=== PATIENT | female | born 1985 | race Caucasian/White ===

== ENCOUNTER → 2018-07-05 | Outpatient (CLI) | payer OTHER | LOC: FIMAGING 10:13 | PROVIDERS: ATTEND Family Medicine | DX: M79.641 Pain in right hand (principal) ==

== ENCOUNTER 2018-11-28 18:34 | Emergency (ER) | payer OTHER ==
[2018-11-28 18:57] VITALS: BP 116/74
[2018-11-28] MEDS ORDERED: FLUORESCEIN SODIUM 1 MG STRIP OP ONE (19:05)
[2018-11-28] MEDS ORDERED: PROPARACAINE 0.5% 15 ML OPHT DROP ONE (19:05)
[2018-11-28] MEDS ORDERED: TOBRAMYCIN 0.3% SOLN PREPACK OPHT.BTL TAKEHOME ONE (19:15)
--- NOTE | 2018-11-28 19:15 | EDPHY ---
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 today Time Seen by Provider: 11/28/18 19:08 HPI/ROS: HPI: This is a 33-year-old female who presents with Chief Complaint: hx keratoconus/removing lens may have abraded r cornea today Location: Right eye Quality: Foreign body sensation Duration: 30 min prior to arrival Signs and Symptoms: no fever, no nausea, no vomiting, no photophobia, no noise sensitivity, no neck stiffness, no ear pain, no tinnitus, no nasal congestion, no sinus pressure, no weakness, no radiation, no aura, no eye pain, no vision changes, no vision blurriness, no diplopia, no discharge Timing: Acute Severity: 11/18 Context: Patient has a history of keratonconus, [facility] in [place], presents with using the suction to remove her lens this evening accidentally scratching the edge of her cornea at the bottom portion near 6:00 a.m. with the plunger. Patient reports that she feels a foreign body sensation in the bottom portion of her eye. She denies any vision changes or eye discharge or eye blurriness. She normally has dry eyes and uses refresh tears. She tried using the refreshed years but the foreign body sensation did not go way. Reports tetanus is up-to-date. Modifying Factors: None Comment: ROS: A comprehensive 10 system review of systems is otherwise negative aside from elements mentioned in the history of present illness. MEDICAL/SURGICAL/SOCIAL HISTORY: Medical history: Generally healthy. Does not take any regular medications. Surgical history: Denies Social history: , employed. Former smoker. Family history noncontributory. General appearance: Well-developed, well-nourished, adult white female, cooperative, nontoxic in appearance, and daughter at bedside, Visual Acuity: noted from Nurse's notes. Pupils: equal round and reactive to light. EOMI Lids: no edema or swelling Skin: no proptosis, no periorbital erythema or swelling, no vesicles Conjunctivae: not injected, no discharge Cornea: exam with fluorescein shows no small pinpoint uptake at the 6 o'clock position Anterior chamber: normal, no hyphema or hypopyon Source: Patient Exam Limitations: No limitations - Personal History LMP (Females 10-55): 8-14 Days Ago Current Tetanus Diphtheria and Acellular Pertussis (TDAP): Yes - Medical/Surgical History Hx Asthma: No Hx Chronic Respiratory Disease: No Hx Diabetes: No Hx Cardiac Disease: No Hx Renal Disease: No Hx Cirrhosis: No Hx Alcoholism: No Hx HIV/AIDS: No Hx Splenectomy or Spleen Trauma: No Other PMH: eye condition - Social History Smoking Status: Former smoker Constitutional: Initial Vital Signs Temperature (C) 37.1 C 11/28/18 18:54 Heart Rate 76 11/28/18 18:54 Respiratory Rate 18 11/28/18 18:54 Blood Pressure 116/74 11/28/18 18:54 O2 Sat (%) 96 11/28/18 18:54 O2 Delivery Mode Room Air Allergies/Adverse Reactions: aspirin Allergy (Verified 11/28/18 18:53) Home Medications: Medication Instructions Recorded Citalopram 11/28/18 Levothyroxine 11/28/18 Refresh Classic Eye Drops 11/28/18 Tobramycin 0.3% [Tobrex] 1 - 2 drops RTEYE Q4 5 Days #1 11/28/18 opht.oint Medical Decision Making ED Course/Re-evaluation: Vital signs reviewed and stable upon arrival. Tetanus is current. Fluorescein stain shows small corneal abrasion; given tobramycin eyedrops and Ophthalmology follow-up This patient was seen under the supervision of my secondary supervising physician. I evaluated care for this patient independently. Discussed this patient with Dr. Cole who did not see the patient. Differential Diagnosis: Differential diagnosis includes but is not limited to retinitis, iritis, conjunctivitis, corneal abrasion, glaucoma, central artery occlusion. Departure - Departure Disposition: Home, Routine, Self-Care Clinical Impression: Abrasion of right cornea Qualifiers: Encounter type: initial encounter Qualified Code(s): S05.01XA - Injury of conjunctiva and corneal abrasion without foreign body, right eye, initial encounter Condition: Good Instructions: Corneal Abrasion (ED) Additional Instructions: Apply Tobramycin 1-2 drops into your right eye every 4 hr while awake x5 days. Please avoid using your hands to touch your eyes. Wash your hands frequently with mild soap and water. Apply cool compresses for 15-20 minutes at a time several times per day for the next 1-2 days. Follow up with ophthalmology in 2-3 days. Eye Complaint: Return to the Emergency Department for any increase in eye pain, redness, swelling, discharge or any worsening of your vision. Referrals: Rhianna Burnham MD [Primary Care Provider] - As per Instructions Prescriptions: Tobramycin 0.3% [Tobrex] 1 - 2 drops RTEYE Q4 5 Days #1 opht.oint
== END 2018-11-28 19:23 | disposition home or self-care (01) ==
DX: S05.01XA Injury of conjunctiva and corneal abrasion without foreign body, right eye, initial encounter (principal); X58.XXXA Exposure to other specified factors, initial encounter; Y92.9 Unspecified place or not applicable; Y99.9 Unspecified external cause status; Y93.9 Activity, unspecified; Z87.891 Personal history of nicotine dependence